=== PATIENT | male | born 1970 | race African-American/Black ===

== ENCOUNTER 2024-01-15 13:14 | Inpatient (IN) | payer OTHER ==
[2024-01-15 14:33] VITALS: BMI 24.5
[2024-01-15] MEDS ORDERED: DICYCLOMINE HCL 10 MG CAPSULE PO PRN (15:07)
[2024-01-15] MEDS ORDERED: BISMUTH SUBSALICYLATE 524 MG/30 ML PO PRN (15:07)
[2024-01-15] MEDS ORDERED: ONDANSETRON *ODT* 4 MG TABLET SL PRN (15:07)
[2024-01-15] MEDS ORDERED: NALOXONE HCL 0.4 MG/ML VIAL IM PRN (15:07)
[2024-01-15] MEDS ORDERED: NALOXONE (NARCAN) HCL 4 MG/0.1 ML SPRAY NS PRN (15:07)
[2024-01-15] MEDS ORDERED: IBUPROFEN 400 MG TABLET (FP) PO PRN (15:07)
[2024-01-15] MEDS ORDERED: MAGNESIUM HYDROX 2400MG/30ML ORAL SUSPENSION 30 ML CUP PO PRN (15:07)
[2024-01-15] MEDS ORDERED: ACETAMINOPHEN 325 MG TABLET (FP) PO PRN (15:07)
[2024-01-15] MEDS ORDERED: MAG HYDROX/AL HYDROX/SIMETH 30 ML UNIT-DOSE CUP PO PRN (15:07)
[2024-01-15] MEDS ORDERED: BENZONATATE 200 MG CAPSULE PO PRN (15:07)
[2024-01-15] MEDS ORDERED: METHOCARBAMOL 500 MG TABLET PO PRN (15:07)
[2024-01-15] MEDS ORDERED: LOPERAMIDE HCL 2 MG CAPSULE PO PRN (15:07)
[2024-01-15] MEDS ORDERED: chlordiazePOXIDE HCL 25 MG CAPSULE PO PRN (15:07)
[2024-01-15] MEDS ORDERED: chlordiazePOXIDE HCL 25 MG CAPSULE ONE (16:27)
[2024-01-15] MEDS: chlordiazePOXIDE HCL 25 MG CAPSULE PO SCH (16:34)
[2024-01-15] MEDS: THIAMINE 100 MG TABLET PO SCH (22:19)
[2024-01-15] MEDS: MELATONIN 5 MG TABLETS PO SCH (22:19)
[2024-01-16 09:06] LABS: CHLORIDE 106 mmol/L (98-107); HEMOGLOBIN 11.3 GM/dL (11.7-16.9); MCHC 31.4 g/dl (32.0-35.9); MEAN CELL VOLUME 86.1 fl (80-96); MEAN PLT VOLUME 9.5 fl (7.5-11.1); PLATELET COUNT 165 10^3/uL (134-434); POTASSIUM 3.9 mmol/L (3.5-5.1); RBC 4.18 M/mm3 (4.00-5.60); RDW 17.4 % (11.9-15.9); SODIUM 140 mmol/L (136-145)
[2024-01-16 09:10] LABS: ALBUMIN 2.6 g/dl (3.4-5.0); BLOOD UREA NITROGEN 10.4 mg/dL (7-18); CALCIUM 8.2 mg/dL (8.5-10.1)
[2024-01-16 09:11] LABS: ANION GAP 5 mmol/L (4-13); CO2 28 mmol/L (21-32); GLUCOSE,RANDOM 102 mg/dL (74-106)
[2024-01-16 09:13] LABS: SGPT/ALT 13 U/L (13-61)
[2024-01-16 09:14] LABS: CREATININE 0.8 mg/dL (0.55-1.3); SGOT/AST 12 U/L (15-37)
[2024-01-16 09:15] LABS: TOT PROT 6.4 g/dl (6.4-8.2)
[2024-01-16 09:16] LABS: ALK PHOS 132 U/L (45-117)
[2024-01-16 09:18] LABS: BILIRUBIN,TOTAL 0.3 mg/dL (0.2-1)
[2024-01-16] MEDS: PRENATAL VITAMINS W/ FOLIC ACID TABLET (FP) PO SCH (11:00)
[2024-01-16] MEDS: IBUPROFEN 600 MG TABLET (FP) PO PRN (11:21)
[2024-01-16] MEDS: guaiFENesin 600 MG TABLET.ER (FP) PO PRN (11:21)
[2024-01-16] MEDS: PENICILLIN G BENZATHINE 2,400,000 UNIT/4 ML PFS IM ONE (15:13)
[2024-01-17] MEDS: chlordiazePOXIDE HCL 25 MG CAPSULE PO SCH (05:21)
[2024-01-17] MEDS: BENZOCAINE/MENTHOL (CHLORASEPTIC ) LOZENGE MM PRN (05:23)
[2024-01-17] MEDS: POLYETHYLENE GLYCOL (HEALTHYLAX) 3350 17 GM PACKET PO PRN (07:04)
[2024-01-17 09:16] VITALS: BP 137/87; PULSE 99; RESP 16; TEMP 98.9
[2024-01-18] MEDS ORDERED: chlordiazePOXIDE HCL 10 MG CAPSULE PO PRN
[2024-01-18] MEDS ORDERED: chlordiazePOXIDE HCL 10 MG CAPSULE PO SCH (05:00)
[2024-01-19] MEDS ORDERED: chlordiazePOXIDE HCL 10 MG CAPSULE PO SCH (05:00)
[2024-01-20] MEDS ORDERED: chlordiazePOXIDE HCL 10 MG CAPSULE PO ONE (05:00)
== END 2024-01-17 12:16 | disposition left against medical advice (07) | DRG 770 ==
LOC: YASAS 13:14 → Y3N 15:38
PROVIDERS: ADMIT Allergy & Immunology; ATTEND Surgery
PROC: HZ2ZZZZ Detoxification Services for Substance Abuse Treatment (ICD-10-PCS; principal; 2024-01-15)
DX: F10.230 Alcohol dependence with withdrawal, uncomplicated (principal); F14.90 Cocaine use, unspecified, uncomplicated; R01.1 Cardiac murmur, unspecified; Z95.4 Presence of other heart-valve replacement; Z96.643 Presence of artificial hip joint, bilateral; Z98.890 Other specified postprocedural states; Z87.891 Personal history of nicotine dependence; Z91.011 Allergy to milk products; Z91.013 Allergy to seafood; Z56.0 Unemployment, unspecified
CPT/HCPCS: 36415; 80053; 80305; 80307; 85027; 86593; 86780; 93005; 93010

== ENCOUNTER 2024-03-08 10:38 | Inpatient (IN) | payer OTHER ==
[2024-03-08 11:31] VITALS: BMI 21.4
[2024-03-08] MEDS ORDERED: NALOXONE (NARCAN) HCL 4 MG/0.1 ML SPRAY NS PRN (12:13)
[2024-03-08] MEDS ORDERED: IBUPROFEN 400 MG TABLET (FP) PO PRN (12:13)
[2024-03-08] MEDS ORDERED: hydrOXYzine PAMOATE 25 MG CAPSULE (FP) PO PRN (12:13)
[2024-03-08] MEDS ORDERED: IBUPROFEN 600 MG TABLET (FP) PO PRN (12:13)
[2024-03-08] MEDS ORDERED: chlordiazePOXIDE HCL 25 MG CAPSULE PO PRN (12:13)
[2024-03-08] MEDS ORDERED: METHOCARBAMOL 500 MG TABLET PO PRN (12:13)
[2024-03-08] MEDS ORDERED: LOPERAMIDE HCL 2 MG CAPSULE PO PRN (12:13)
[2024-03-08] MEDS ORDERED: DICYCLOMINE HCL 10 MG CAPSULE PO PRN (12:13)
[2024-03-08] MEDS ORDERED: BENZONATATE 200 MG CAPSULE PO PRN (12:13)
[2024-03-08] MEDS ORDERED: ACETAMINOPHEN 325 MG TABLET (FP) PO PRN (12:13)
[2024-03-08] MEDS ORDERED: BISMUTH SUBSALICYLATE 524 MG/30 ML PO PRN (12:13)
[2024-03-08] MEDS ORDERED: guaiFENesin 600 MG TABLET.ER (FP) PO PRN (12:13)
[2024-03-08] MEDS ORDERED: ONDANSETRON *ODT* 4 MG TABLET SL PRN (12:13)
[2024-03-08] MEDS: PRENATAL VITAMINS W/ FOLIC ACID TABLET (FP) PO SCH (13:28)
[2024-03-08] MEDS: chlordiazePOXIDE HCL 25 MG CAPSULE PO SCH (17:21)
[2024-03-08] MEDS: THIAMINE 100 MG TABLET PO SCH (22:42)
[2024-03-08] MEDS: MELATONIN 5 MG TABLETS PO SCH (22:44)
[2024-03-09] MEDS: BICTEGRAV/EMTRICIT/TENOFOV (BIKTARVY) 50-200-25 MG TABLET PO SCH (07:23)
[2024-03-09] MEDS: TAMSULOSIN HCL 0.4 MG CAP PO SCH (08:48)
[2024-03-09] MEDS: SULFAMETHOXAZOLE/TRIMETHOPRIM 800MG/160MG D.S. TABLET PO SCH (09:48)
[2024-03-09] MEDS: PANTOPRAZOLE 20 MG TABLET PO SCH (09:49)
[2024-03-09] MEDS: FLUCONAZOLE 100 MG TABLET (UD) PO SCH (09:49)
[2024-03-09] MEDS: amLODIPine BESYLATE 10 MG TABLET (FP) PO SCH (09:49)
[2024-03-09 11:53] LABS: HEMATOCRIT 36.9 % (35.4-49); HEMOGLOBIN 11.4 GM/dL (11.7-16.9); MCH 26.7 pg (25.7-33.7); MCHC 30.8 g/dl (32.0-35.9); MEAN CELL VOLUME 86.6 fl (80-96); MEAN PLT VOLUME 9.6 fl (7.5-11.1); PLATELET COUNT 222 10^3/uL (134-434); RBC 4.26 M/mm3 (4.00-5.60); RDW 15.4 % (11.9-15.9)
[2024-03-09 13:20] LABS: POTASSIUM 4.3 mmol/L (3.5-5.1)
[2024-03-09 13:25] LABS: ALBUMIN 2.9 g/dl (3.4-5.0); BLOOD UREA NITROGEN 23.4 mg/dL (7-18)
[2024-03-09 13:28] LABS: CREATININE 0.8 mg/dL (0.55-1.3)
[2024-03-09 13:30] LABS: BILIRUBIN,TOTAL 0.3 mg/dL (0.2-1); TOT PROT 6.7 g/dl (6.4-8.2)
[2024-03-09] MEDS: MAGNESIUM HYDROX 2400MG/30ML ORAL SUSPENSION 30 ML CUP PO PRN (18:55)
[2024-03-09] MEDS: MAG HYDROX/AL HYDROX/SIMETH 30 ML UNIT-DOSE CUP PO PRN (20:25)
[2024-03-10] MEDS: BENZOCAINE/MENTHOL (CHLORASEPTIC ) LOZENGE MM PRN (04:22)
[2024-03-10] MEDS: chlordiazePOXIDE HCL 25 MG CAPSULE PO SCH (05:36)
[2024-03-10] MEDS: FOLIC ACID 1 MG TABLET (FP) PO SCH (07:35)
[2024-03-10] MEDS: POLYETHYLENE GLYCOL (HEALTHYLAX) 3350 17 GM PACKET PO PRN (13:35)
[2024-03-10] MEDS: LACTULOSE 20 GM/30 ML UDC (FOR ORAL USE ONLY) PO ONE (14:58)
[2024-03-10] MEDS: TAMSULOSIN HCL 0.4 MG CAP PO SCH (22:35)
[2024-03-11] MEDS ORDERED: chlordiazePOXIDE HCL 10 MG CAPSULE PO PRN
[2024-03-11] MEDS: chlordiazePOXIDE HCL 10 MG CAPSULE PO SCH (05:26)
[2024-03-11 09:05] VITALS: BP 132/87; PULSE 90; RESP 16; TEMP 97.8
[2024-03-11] MEDS: BICTEGRAV/EMTRICIT/TENOFOV (BIKTARVY) 50-200-25 MG TABLET PO SCH (09:45)
[2024-03-11] MEDS: NALOXONE (NYS OPIOID OVERDOSE PROGRAM) 4 MG/0.1 ML SPRAY NS PRN (11:08)
[2024-03-12] MEDS ORDERED: chlordiazePOXIDE HCL 10 MG CAPSULE PO SCH (05:00)
[2024-03-13] MEDS ORDERED: chlordiazePOXIDE HCL 10 MG CAPSULE PO ONE (05:00)
== END 2024-03-11 11:20 | disposition home or self-care (01) | DRG 775 ==
LOC: YASAS 10:38 → Y6N 12:59
PROVIDERS: ADMIT Allergy & Immunology; ATTEND Surgery
PROC: HZ2ZZZZ Detoxification Services for Substance Abuse Treatment (ICD-10-PCS; principal; 2024-03-08)
DX: F10.230 Alcohol dependence with withdrawal, uncomplicated (principal); Z21 Asymptomatic human immunodeficiency virus [HIV] infection status; I10 Essential (primary) hypertension; K21.9 Gastro-esophageal reflux disease without esophagitis; N40.0 Benign prostatic hyperplasia without lower urinary tract symptoms; Z96.643 Presence of artificial hip joint, bilateral; R76.8 Other specified abnormal immunological findings in serum; Z86.19 Personal history of other infectious and parasitic diseases; Z95.2 Presence of prosthetic heart valve; Z87.891 Personal history of nicotine dependence; Z79.899 Other long term (current) drug therapy
CPT/HCPCS: 36415; 80053; 80305; 80307; 85027; 86593; 86780; 93005; 93010

== ENCOUNTER 2024-05-07 16:10 | Inpatient (IN) | payer OTHER ==
[2024-05-07 16:36] VITALS: BMI 20.5
[2024-05-07] MEDS ORDERED: BENZONATATE 200 MG CAPSULE PO PRN (17:10)
[2024-05-07] MEDS ORDERED: IBUPROFEN 400 MG TABLET (FP) PO PRN (17:10)
[2024-05-07] MEDS ORDERED: LOPERAMIDE HCL 2 MG CAPSULE PO PRN (17:10)
[2024-05-07] MEDS ORDERED: MAGNESIUM HYDROX 2400MG/30ML ORAL SUSPENSION 30 ML CUP PO PRN (17:10)
[2024-05-07] MEDS ORDERED: ONDANSETRON *ODT* 4 MG TABLET SL PRN (17:10)
[2024-05-07] MEDS ORDERED: chlordiazePOXIDE HCL 25 MG CAPSULE PO PRN (17:10)
[2024-05-07] MEDS ORDERED: ACETAMINOPHEN 325 MG TABLET (FP) PO PRN (17:10)
[2024-05-07] MEDS ORDERED: NALOXONE (NARCAN) HCL 4 MG/0.1 ML SPRAY NS PRN (17:10)
[2024-05-07] MEDS ORDERED: DICYCLOMINE HCL 10 MG CAPSULE PO PRN (17:10)
[2024-05-07] MEDS ORDERED: POLYETHYLENE GLYCOL (HEALTHYLAX) 3350 17 GM PACKET PO PRN (17:10)
[2024-05-07] MEDS: MAG HYDROX/AL HYDROX/SIMETH 30 ML UNIT-DOSE CUP PO PRN (20:46)
[2024-05-07] MEDS: chlordiazePOXIDE HCL 25 MG CAPSULE PO SCH (22:18)
[2024-05-07] MEDS: THIAMINE 100 MG TABLET PO SCH (22:19)
[2024-05-07] MEDS: MELATONIN 5 MG TABLETS PO SCH (22:19)
[2024-05-07] MEDS: BISMUTH SUBSALICYLATE 524 MG/30 ML PO PRN (22:20)
[2024-05-08] MEDS: PRENATAL VITAMINS W/ FOLIC ACID TABLET (FP) PO SCH (10:18)
[2024-05-08] MEDS: BICTEGRAV/EMTRICIT/TENOFOV (BIKTARVY) 50-200-25 MG TABLET PO SCH (10:18)
[2024-05-08] MEDS: SULFAMETHOXAZOLE/TRIMETHOPRIM 800MG/160MG D.S. TABLET PO SCH (10:18)
[2024-05-08] MEDS: PANTOPRAZOLE 40 MG TABLET PO ONE (10:18)
[2024-05-08] MEDS: FLUCONAZOLE 100 MG TABLET (UD) PO SCH (10:59)
[2024-05-08 11:12] LABS: HEMATOCRIT 36.5 % (35.4-49); HEMOGLOBIN 11.7 GM/dL (11.7-16.9); MCH 26.6 pg (25.7-33.7); MCHC 31.9 g/dl (32.0-35.9); MEAN CELL VOLUME 83.4 fl (80-96); MEAN PLT VOLUME 9.7 fl (7.5-11.1); PLATELET COUNT 186 10^3/uL (134-434); RBC 4.38 M/mm3 (4.00-5.60); WHITE BLOOD COUNT 5.4 K/mm3 (4.0-10.0)
[2024-05-08 11:13] LABS: CHLORIDE 105 mmol/L (98-107); POTASSIUM 3.6 mmol/L (3.5-5.1); SODIUM 140 mmol/L (136-145)
[2024-05-08 11:22] LABS: ANION GAP 5 mmol/L (4-13); CALCIUM 8.6 mg/dL (8.5-10.1); CO2 30 mmol/L (21-32); GLUCOSE,RANDOM 61 mg/dL (74-106)
[2024-05-08 11:23] LABS: ALBUMIN 2.8 g/dl (3.4-5.0); BLOOD UREA NITROGEN 11.6 mg/dL (7-18)
[2024-05-08 11:24] LABS: CREATININE 0.8 mg/dL (0.55-1.3); SGPT/ALT 19 U/L (13-61)
[2024-05-08 11:26] LABS: BILIRUBIN,TOTAL 0.1 mg/dL (0.2-1); SGOT/AST 15 U/L (15-37); TOT PROT 6.9 g/dl (6.4-8.2)
[2024-05-08 11:27] LABS: ALK PHOS 116 U/L (45-117)
[2024-05-08] MEDS: BENZOCAINE/MENTHOL (CHLORASEPTIC ) LOZENGE MM PRN (11:51)
[2024-05-08] MEDS: FAMOTIDINE 20 MG TABLET PO ONE (18:48)
[2024-05-08] MEDS: guaiFENesin 600 MG TABLET.ER (FP) PO PRN (22:20)
[2024-05-08] MEDS: TAMSULOSIN HCL 0.4 MG CAP PO SCH (22:20)
[2024-05-09] MEDS: chlordiazePOXIDE HCL 25 MG CAPSULE PO SCH (05:33)
[2024-05-09] MEDS: PANTOPRAZOLE 40 MG TABLET PO SCH (07:23)
[2024-05-10] MEDS ORDERED: chlordiazePOXIDE HCL 10 MG CAPSULE PO PRN
[2024-05-10] MEDS: chlordiazePOXIDE HCL 10 MG CAPSULE PO SCH (05:37)
[2024-05-10] MEDS: hydrOXYzine PAMOATE 25 MG CAPSULE (FP) PO PRN (06:48)
[2024-05-11] MEDS: chlordiazePOXIDE HCL 10 MG CAPSULE PO SCH (05:40)
[2024-05-11] MEDS: IBUPROFEN 600 MG TABLET (FP) PO PRN (05:42)
[2024-05-11] MEDS: METHOCARBAMOL 500 MG TABLET PO PRN (05:42)
[2024-05-11 09:36] VITALS: BP 100/60; PULSE 90; RESP 18; TEMP 97.6
[2024-05-11] MEDS: NYSTATIN 500,000 UNITS/5 ML SUSPENSION PO SCH (11:16)
[2024-05-11] MEDS: NALOXONE (NYS OPIOID OVERDOSE PROGRAM) 4 MG/0.1 ML SPRAY NS SCH (11:30)
[2024-05-12] MEDS ORDERED: chlordiazePOXIDE HCL 10 MG CAPSULE PO ONE (05:00)
== END 2024-05-11 11:40 | disposition home or self-care (01) | DRG 774 ==
LOC: YASAS 16:10 → Y3N 17:37
PROVIDERS: ADMIT Allergy & Immunology; ATTEND Surgery
PROC: HZ2ZZZZ Detoxification Services for Substance Abuse Treatment (ICD-10-PCS; principal; 2024-05-07)
DX: F10.230 Alcohol dependence with withdrawal, uncomplicated (principal); F14.20 Cocaine dependence, uncomplicated; I10 Essential (primary) hypertension; B20 Human immunodeficiency virus [HIV] disease; B37.0 Candidal stomatitis; K21.9 Gastro-esophageal reflux disease without esophagitis; N40.0 Benign prostatic hyperplasia without lower urinary tract symptoms; I25.10 Atherosclerotic heart disease of native coronary artery without angina pectoris; R01.1 Cardiac murmur, unspecified; Z96.643 Presence of artificial hip joint, bilateral; Z87.891 Personal history of nicotine dependence; Z56.0 Unemployment, unspecified
CPT/HCPCS: 36415; 71046-TC-FY; 80053; 80305; 80307; 85027; 86593; 86780

== ENCOUNTER 2024-08-11 12:21 | Inpatient (IN) | payer OTHER ==
[2024-08-11 12:34] VITALS: BMI 23.1
[2024-08-11] MEDS ORDERED: IBUPROFEN 400 MG TABLET (FP) PO PRN (12:48)
[2024-08-11] MEDS ORDERED: BISMUTH SUBSALICYLATE 524 MG/30 ML PO PRN (12:48)
[2024-08-11] MEDS ORDERED: ONDANSETRON *ODT* 4 MG TABLET SL PRN (12:48)
[2024-08-11] MEDS ORDERED: LOPERAMIDE HCL 2 MG CAPSULE PO PRN (12:48)
[2024-08-11] MEDS ORDERED: ACETAMINOPHEN 325 MG TABLET (FP) PO PRN (12:48)
[2024-08-11] MEDS ORDERED: POLYETHYLENE GLYCOL (HEALTHYLAX) 3350 17 GM PACKET PO PRN (12:48)
[2024-08-11] MEDS ORDERED: IBUPROFEN 600 MG TABLET (FP) PO PRN (12:48)
[2024-08-11] MEDS ORDERED: BENZONATATE 200 MG CAPSULE PO PRN (12:48)
[2024-08-11] MEDS ORDERED: NALOXONE (NARCAN) HCL 4 MG/0.1 ML SPRAY NS PRN (12:48)
[2024-08-11] MEDS ORDERED: guaiFENesin 600 MG TABLET.ER (FP) PO PRN (12:48)
[2024-08-11] MEDS ORDERED: MAGNESIUM HYDROX 2400MG/30ML ORAL SUSPENSION 30 ML CUP PO PRN (12:48)
[2024-08-11] MEDS ORDERED: DICYCLOMINE HCL 10 MG CAPSULE PO PRN (12:48)
[2024-08-11] MEDS ORDERED: chlordiazePOXIDE HCL 25 MG CAPSULE PO PRN (12:48)
[2024-08-11] MEDS: PRENATAL VITAMINS W/ FOLIC ACID TABLET (FP) PO SCH (14:10)
[2024-08-11] MEDS: chlordiazePOXIDE HCL 25 MG CAPSULE PO SCH (17:47)
[2024-08-11] MEDS: MAG HYDROX/AL HYDROX/SIMETH 30 ML UNIT-DOSE CUP PO PRN (18:02)
[2024-08-11] MEDS: THIAMINE 100 MG TABLET PO SCH (22:42)
[2024-08-11] MEDS: hydrOXYzine PAMOATE 25 MG CAPSULE (FP) PO PRN (22:42)
[2024-08-11] MEDS: METHOCARBAMOL 500 MG TABLET PO PRN (22:42)
[2024-08-11] MEDS: MELATONIN 5 MG TABLETS PO SCH (22:43)
[2024-08-12] MEDS: BICTEGRAV/EMTRICIT/TENOFOV (BIKTARVY) 50-200-25 MG TABLET PO SCH (07:32)
[2024-08-12] MEDS: TAMSULOSIN HCL 0.4 MG CAP PO SCH (09:03)
[2024-08-12 09:34] LABS: POTASSIUM 3.6 mmol/L (3.5-5.1)
[2024-08-12 09:36] LABS: HEMATOCRIT 35.9 % (35.4-49); HEMOGLOBIN 11.5 GM/dL (11.7-16.9); MCHC 31.9 g/dl (32.0-35.9); MEAN CELL VOLUME 81.4 fl (80-96); MEAN PLT VOLUME 9.3 fl (7.5-11.1); PLATELET COUNT 234 10^3/uL (134-434); RBC 4.41 M/mm3 (4.00-5.60); RDW 16.9 % (11.9-15.9); WHITE BLOOD COUNT 6.3 K/mm3 (4.0-10.0)
[2024-08-12 09:50] LABS: ALBUMIN 2.6 g/dl (3.4-5.0); BLOOD UREA NITROGEN 10.2 mg/dL (7-18); CALCIUM 8.5 mg/dL (8.5-10.1)
[2024-08-12 09:52] LABS: CREATININE 0.8 mg/dL (0.55-1.3)
[2024-08-12 09:54] LABS: BILIRUBIN,TOTAL 0.4 mg/dL (0.2-1)
[2024-08-12 09:57] LABS: TOT PROT 6.7 g/dl (6.4-8.2)
[2024-08-12] MEDS: amLODIPine BESYLATE 10 MG TABLET (FP) PO SCH (10:42)
[2024-08-12] MEDS: PANTOPRAZOLE 20 MG TABLET PO SCH (10:42)
[2024-08-12] MEDS: TAMSULOSIN HCL 0.4 MG CAP PO ONE (10:42)
[2024-08-12] MEDS: SULFAMETHOXAZOLE/TRIMETHOPRIM 800MG/160MG D.S. TABLET PO SCH (10:42)
[2024-08-12] MEDS: FLUCONAZOLE 100 MG TABLET (UD) PO SCH (10:50)
[2024-08-13] MEDS: chlordiazePOXIDE HCL 25 MG CAPSULE PO SCH (06:00)
[2024-08-13] MEDS: TAMSULOSIN HCL 0.4 MG CAP PO SCH (08:01)
[2024-08-14] MEDS ORDERED: chlordiazePOXIDE HCL 10 MG CAPSULE PO PRN
[2024-08-14] MEDS: NYSTATIN 500,000 UNITS/5 ML SUSPENSION PO SCH (01:13)
[2024-08-14] MEDS: BENZOCAINE/MENTHOL (CHLORASEPTIC ) LOZENGE MM PRN (03:57)
[2024-08-14] MEDS: chlordiazePOXIDE HCL 10 MG CAPSULE PO SCH (06:00)
[2024-08-15] MEDS: chlordiazePOXIDE HCL 10 MG CAPSULE PO SCH (06:00)
[2024-08-15 09:08] VITALS: BP 111/71; PULSE 104; RESP 18; TEMP 98.7
[2024-08-15] MEDS ORDERED: FLUCONAZOLE 100 MG TABLET (UD) PO ONE (13:30)
[2024-08-16] MEDS ORDERED: chlordiazePOXIDE HCL 10 MG CAPSULE PO ONE (05:00)
== END 2024-08-15 09:55 | disposition home or self-care (01) | DRG 774 ==
LOC: YASAS 12:21 → Y6N 13:29
PROVIDERS: ADMIT Allergy & Immunology; ATTEND Allergy & Immunology
PROC: HZ2ZZZZ Detoxification Services for Substance Abuse Treatment (ICD-10-PCS; principal; 2024-08-11)
DX: F10.230 Alcohol dependence with withdrawal, uncomplicated (principal); F14.20 Cocaine dependence, uncomplicated; Z21 Asymptomatic human immunodeficiency virus [HIV] infection status; I10 Essential (primary) hypertension; K21.9 Gastro-esophageal reflux disease without esophagitis; B37.0 Candidal stomatitis; J06.9 Acute upper respiratory infection, unspecified; N40.0 Benign prostatic hyperplasia without lower urinary tract symptoms; Z87.891 Personal history of nicotine dependence; Z79.899 Other long term (current) drug therapy; Z86.19 Personal history of other infectious and parasitic diseases
CPT/HCPCS: 0241U-QW; 36415; 80053; 80305; 80307; 85027; 86593; 86780; 93005; 93010

== ENCOUNTER 2024-10-31 09:56 | Inpatient (IN) | payer OTHER ==
[2024-10-31 10:08] VITALS: BMI 22.0
[2024-10-31] MEDS ORDERED: BENZOCAINE/MENTHOL (CHLORASEPTIC ) LOZENGE MM PRN (10:26)
[2024-10-31] MEDS ORDERED: POLYETHYLENE GLYCOL (HEALTHYLAX) 3350 17 GM PACKET PO PRN (10:26)
[2024-10-31] MEDS ORDERED: NALOXONE (NARCAN) HCL 4 MG/0.1 ML SPRAY NS PRN (10:26)
[2024-10-31] MEDS ORDERED: LOPERAMIDE HCL 2 MG CAPSULE PO PRN (10:26)
[2024-10-31] MEDS ORDERED: guaiFENesin 600 MG TABLET.ER (FP) PO PRN (10:26)
[2024-10-31] MEDS ORDERED: BENZONATATE 200 MG CAPSULE PO PRN (10:26)
[2024-10-31] MEDS ORDERED: ACETAMINOPHEN 325 MG TABLET (FP) PO PRN (10:26)
[2024-10-31] MEDS: MELATONIN 5 MG TABLETS PO SCH (21:24)
[2024-10-31] MEDS: THIAMINE 100 MG TABLET PO SCH (21:24)
[2024-10-31] MEDS: IBUPROFEN 600 MG TABLET (FP) PO PRN (23:41)
[2024-10-31] MEDS: MAG HYDROX/AL HYDROX/SIMETH 30 ML UNIT-DOSE CUP PO PRN (23:42)
[2024-11-01] MEDS: BICTEGRAV/EMTRICIT/TENOFOV (BIKTARVY) 50-200-25 MG TABLET PO SCH (07:53)
[2024-11-01] MEDS: TAMSULOSIN HCL 0.4 MG CAP PO SCH (07:54)
[2024-11-01] MEDS: FOLIC ACID 1 MG TABLET (FP) PO SCH (09:08)
[2024-11-01] MEDS: SULFAMETHOXAZOLE/TRIMETHOPRIM 800MG/160MG D.S. TABLET PO SCH (09:08)
[2024-11-01] MEDS: IBUPROFEN 400 MG TABLET (FP) PO PRN (09:09)
[2024-11-01] MEDS: PRENATAL VITAMINS W/ FOLIC ACID TABLET (FP) PO SCH (09:09)
[2024-11-01] MEDS: amLODIPine BESYLATE 10 MG TABLET (FP) PO SCH (09:09)
[2024-11-01] MEDS: MAGNESIUM HYDROX 2400MG/30ML ORAL SUSPENSION 30 ML CUP PO PRN (09:11)
[2024-11-01 11:29] VITALS: BP 123/73; PULSE 95; RESP 16; TEMP 96.8
[2024-11-01 11:36] LABS: HEMATOCRIT 33.2 % (40.1-51.0); HEMOGLOBIN 10.2 g/dL (13.7-17.5); MCHC 30.7 g/dl (32.3-36.5); MEAN CELL VOLUME 80.6 fl (79.0-92.2); MEAN PLT VOLUME 11.2 fl (9.4-12.4); PLATELET COUNT 473 x10^3/uL (163-337)
[2024-11-01 11:50] LABS: BLOOD UREA NITROGEN 18.1 mg/dL (7-18)
[2024-11-01 11:51] LABS: CALCIUM 9.3 mg/dL (8.5-10.1)
[2024-11-01 11:52] LABS: ALBUMIN 3.1 g/dl (3.4-5.0); TOT PROT 7.4 g/dl (6.4-8.2)
[2024-11-01 11:54] LABS: CREATININE 0.9 mg/dL (0.55-1.3)
[2024-11-01 12:02] LABS: BILIRUBIN,TOTAL 0.2 mg/dL (0.2-1)
[2024-11-01] MEDS ORDERED: MIDAZOLAM HCL 2 MG/2 ML SINGLE DOSE VIAL ONE (15:40)
[2024-11-01] MEDS ORDERED: PROPOFOL 40 ML ONE (15:41)
[2024-11-01] MEDS ORDERED: ROCURONIUM BROMIDE 50 MG/5 ML SYRINGE ONE ×2 (15:42→16:52)
[2024-11-01] MEDS ORDERED: SUCCINYLCHOLINE CHLORIDE 200 MG/10 ML SYRINGE ONE (15:42)
[2024-11-01] MEDS ORDERED: ceFAZolin SODIUM 1 GM VIAL ONE ×2 (16:09)
[2024-11-01] MEDS ORDERED: MIRTAZAPINE 15 MG TABLET (FP) PO SCH (22:00)
[2024-11-02] MEDS ORDERED: PANTOPRAZOLE 20 MG TABLET PO SCH (10:00)
[2024-11-02] MEDS ORDERED: FLUCONAZOLE 100 MG TABLET (UD) PO SCH (10:00)
== END 2024-11-01 18:30 | disposition short-term general hospital (02) | DRG 772 ==
LOC: YASAS 09:56 → Y3E 10:56
PROVIDERS: ADMIT Psychiatry & Neurology Pain Medicine; ATTEND Psychiatry & Neurology Pain Medicine
PROC: HZ42ZZZ Group Counseling for Substance Abuse Treatment, Cognitive-Behavioral (ICD-10-PCS; principal; 2024-10-31)
DX: F10.20 Alcohol dependence, uncomplicated (principal); F14.20 Cocaine dependence, uncomplicated; F19.282 Other psychoactive substance dependence with psychoactive substance-induced sleep disorder; F32.A Depression, unspecified; Z21 Asymptomatic human immunodeficiency virus [HIV] infection status; B37.0 Candidal stomatitis; G47.00 Insomnia, unspecified; I10 Essential (primary) hypertension; K21.9 Gastro-esophageal reflux disease without esophagitis; N40.0 Benign prostatic hyperplasia without lower urinary tract symptoms; K40.30 Unilateral inguinal hernia, with obstruction, without gangrene, not specified as recurrent; Z87.891 Personal history of nicotine dependence; Z95.4 Presence of other heart-valve replacement; Z86.19 Personal history of other infectious and parasitic diseases; Z99.89 Dependence on other enabling machines and devices
CPT/HCPCS: 36415; 80053; 80305; 80307; 85027; 86593; 86780; 87811

== ENCOUNTER 2024-11-01 12:11 | Inpatient (IN) | payer OTHER ==
[2024-11-01] MEDS ORDERED: morphine SULFATE 4 MG/ML VIAL ONE (14:06)
[2024-11-01] MEDS: morphine SULFATE 4 MG/ML VIAL IVPUSH ONE (14:08)
[2024-11-01 14:23] LABS: ABSOLUTE IMMATURE GRANULOCYTES 0.24 x10^3/uL (0.0-0.031); BASOPHILS # 0.03 x10^3/uL (0.01-0.08); EOSINOPHIL % 1.1 % (0.8-7.0); HEMATOCRIT 37.2 % (40.1-51.0); HEMOGLOBIN 11.4 g/dL (13.7-17.5); MCHC 30.6 g/dl (32.3-36.5); MEAN CELL VOLUME 80.3 fl (79.0-92.2); MONOCYTE # 0.62 x10^3/uL (0.30-0.82); MONOCYTE % 6.9 % (5.3-12.2); PLATELET COUNT 473 x10^3/uL (163-337); RDW 18.6 % (12.2-16.1)
[2024-11-01 14:27] LABS: INR 0.92 (0.83-1.09)
[2024-11-01] MEDS: SODIUM CHLORIDE 0.9% 1000 ML INFUS.BAG IV ONE (14:28)
[2024-11-01 14:31] LABS: ACTIVATED PTT 27.7 SECONDS (25.2-36.5)
[2024-11-01 14:45] LABS: POTASSIUM 3.9 mmol/L (3.5-5.1)
[2024-11-01 14:47] LABS: ALBUMIN 2.9 g/dl (3.4-5.0); BLOOD UREA NITROGEN 13.8 mg/dL (7-18); CALCIUM 9.1 mg/dL (8.5-10.1)
[2024-11-01 14:50] LABS: CREATININE 0.7 mg/dL (0.55-1.3)
[2024-11-01 14:52] LABS: BILIRUBIN,TOTAL 0.3 mg/dL (0.2-1); TOT PROT 7.5 g/dl (6.4-8.2)
[2024-11-01] MEDS: ceFAZolin SODIUM 1 GM VIAL IVPB ONE (16:10)
[2024-11-01] MEDS: BUPIVACAINE HCL/PF 0.25% (2.5MG/ML) 10 ML VIAL IJ ONE ×2 (16:20)
[2024-11-01] MEDS ORDERED: MIDAZOLAM HCL 2 MG/2 ML SINGLE DOSE VIAL ONE (17:21)
[2024-11-01] MEDS ORDERED: SUGAMMADEX SODIUM 200 MG/2 ML VIAL ONE (17:28)
[2024-11-01] MEDS ORDERED: PHENYLEPHRINE HCL 10 MG/1 ML SINGLE DOSE VIAL ONE (17:32)
[2024-11-01] MEDS ORDERED: ONDANSETRON 4 MG/2 ML VIAL IVPUSH PRN (17:54)
[2024-11-01] MEDS: LACTATED RINGERS SOLUTION 1,000 ML/1,000 ML INFUS.BAG IV SCH (18:00)
[2024-11-01] MEDS: ACETAMINOPHEN INJECTION 100 ML ONE (18:57)
[2024-11-01] MEDS: ACETAMINOPHEN 1000 MG/100 ML BAG IVPB SCH (18:57)
[2024-11-01] MEDS: LORazepam 2 MG/ML SDV VIAL IVPUSH PRN (20:45)
[2024-11-01] MEDS: NYSTATIN 500,000 UNITS/5 ML SUSPENSION PO SCH (21:50)
[2024-11-01] MEDS: AMPICILLIN NA/SULBACTAM NA 3 GM in SODIUM CHLORIDE 100 ML IVPB SCH (22:04)
[2024-11-01] MEDS: LACTATED RINGERS SOLUTION 1,000 ML IV SCH (22:04)
[2024-11-01 22:59] VITALS: BMI 21.7
[2024-11-01] MEDS: CEFAZOLIN (F) 1 GM/D5W 1 GM/50 ML BAG IVPB SCH (23:03)
[2024-11-02] MEDS: LORazepam 2 MG/ML SDV VIAL IVPUSH ONE (02:47)
[2024-11-02 08:39] LABS: ABSOLUTE IMMATURE GRANULOCYTES 0.08 x10^3/uL (0.0-0.031); BASOPHILS # 0.04 x10^3/uL (0.01-0.08); EOSINOPHIL % 1.4 % (0.8-7.0); EOSINOPHILS # 0.09 x10^3/uL (0.04-0.54); HEMOGLOBIN 10.6 g/dL (13.7-17.5); MCHC 29.4 g/dl (32.3-36.5); MEAN CELL VOLUME 82.2 fl (79.0-92.2); MEAN PLT VOLUME 10.3 fl (9.4-12.4); MONOCYTE # 0.48 x10^3/uL (0.30-0.82); MONOCYTE % 7.3 % (5.3-12.2); PLATELET COUNT 423 x10^3/uL (163-337); RDW 18.4 % (12.2-16.1)
[2024-11-02 09:00] LABS: POTASSIUM 4.5 mmol/L (3.5-5.1)
[2024-11-02 09:15] LABS: CALCIUM 8.6 mg/dL (8.5-10.1)
[2024-11-02 09:16] LABS: BLOOD UREA NITROGEN 9.4 mg/dL (7-18)
[2024-11-02 09:19] LABS: CREATININE 0.7 mg/dL (0.55-1.3)
[2024-11-02] MEDS ORDERED: amLODIPine BESYLATE 10 MG TABLET (FP) PO SCH (10:00)
[2024-11-02] MEDS: HEPARIN NA (PORCINE) 5,000 UNITS/ML 1ML VIAL SQ SCH (10:00)
[2024-11-02] MEDS: SULFAMETHOXAZOLE/TRIMETHOPRIM 800MG/160MG D.S. TABLET PO SCH (10:00)
[2024-11-02] MEDS: TAMSULOSIN HCL 0.4 MG CAP PO SCH (10:00)
[2024-11-02] MEDS: BICTEGRAV/EMTRICIT/TENOFOV (BIKTARVY) 50-200-25 MG TABLET PO SCH (10:00)
[2024-11-02] MEDS: FLUCONAZOLE 100 MG TABLET (UD) PO SCH (10:01)
[2024-11-02] MEDS: amLODIPine BESYLATE 10 MG TABLET (FP) PO SCH (10:01)
[2024-11-02] MEDS: FAMOTIDINE 20 MG TABLET PO SCH (10:05)
[2024-11-02] MEDS: MULTIVITAMINS (DAILY MVI) TABLET (FP) PO SCH (11:46)
[2024-11-02 12:47] LABS: MAGNESIUM 2.2 mg/dL (1.8-2.4)
[2024-11-02 12:51] LABS: PHOSPHOROUS 3.4 mg/dL (2.5-4.9)
[2024-11-03] MEDS: ACETAMINOPHEN 1000 MG/100 ML BAG IVPB ONE (04:05)
[2024-11-03] MEDS: MELATONIN 5 MG TABLETS PO ONE (04:05)
[2024-11-03 07:53] VITALS: PULSE 80
[2024-11-03] MEDS: amLODIPine BESYLATE 5 MG TABLET (FP) PO SCH (09:44)
[2024-11-03 10:53] VITALS: BP 120/74; RESP 20; TEMP 98
== END 2024-11-03 11:15 | disposition home or self-care (01) | DRG 228 ==
LOC: JER 12:11 → JERBED 14:53 → JER 15:25 → J2C 16:11 → J8W 20:11
PROVIDERS: ADMIT Internal Medicine; ATTEND Nurse Practitioner Family
PROC: 0YU60JZ Supplement Left Inguinal Region with Synthetic Substitute, Open Approach (ICD-10-PCS; principal; 2024-11-01 18:00)
DX: K40.30 Unilateral inguinal hernia, with obstruction, without gangrene, not specified as recurrent (principal); B37.0 Candidal stomatitis; I10 Essential (primary) hypertension; K21.9 Gastro-esophageal reflux disease without esophagitis; N40.0 Benign prostatic hyperplasia without lower urinary tract symptoms; F14.10 Cocaine abuse, uncomplicated; Z21 Asymptomatic human immunodeficiency virus [HIV] infection status
CPT/HCPCS: 36415; 74176-TC; 80048; 80053; 83605; 83735; 84100; 85025; 85610; 85730; 86140; 86850; 86900; 86901; 93005; 93010; 94760; 99285-25

== ENCOUNTER 2025-03-03 11:59 | Inpatient (IN) | payer OTHER ==
[2025-03-03 12:28] VITALS: BMI 21.1
[2025-03-03] MEDS ORDERED: DICYCLOMINE HCL 10 MG CAPSULE PO PRN (15:06)
[2025-03-03] MEDS ORDERED: IBUPROFEN 600 MG TABLET (FP) PO PRN (15:06)
[2025-03-03] MEDS ORDERED: ONDANSETRON *ODT* 4 MG TABLET SL PRN (15:06)
[2025-03-03] MEDS ORDERED: IBUPROFEN 400 MG TABLET (FP) PO PRN (15:06)
[2025-03-03] MEDS ORDERED: MAGNESIUM HYDROX 2400MG/30ML ORAL SUSPENSION 30 ML CUP PO PRN (15:06)
[2025-03-03] MEDS ORDERED: BISMUTH SUBSALICYLATE 524 MG/30 ML PO PRN (15:06)
[2025-03-03] MEDS ORDERED: POLYETHYLENE GLYCOL (HEALTHYLAX) 3350 17 GM PACKET PO PRN (15:06)
[2025-03-03] MEDS ORDERED: METHOCARBAMOL 500 MG TABLET PO PRN (15:06)
[2025-03-03] MEDS ORDERED: ACETAMINOPHEN 325 MG TABLET (FP) PO PRN (15:06)
[2025-03-03] MEDS ORDERED: BENZONATATE 200 MG CAPSULE PO PRN (15:06)
[2025-03-03] MEDS ORDERED: NALOXONE (NARCAN) HCL 4 MG/0.1 ML SPRAY NS PRN (15:06)
[2025-03-03] MEDS ORDERED: BENZOCAINE/MENTHOL (CHLORASEPTIC ) LOZENGE MM PRN (15:06)
[2025-03-03] MEDS ORDERED: guaiFENesin 600 MG TABLET.ER (FP) PO PRN (15:06)
[2025-03-03] MEDS ORDERED: BICTEGRAV/EMTRICIT/TENOFOV (BIKTARVY) 50-200-25 MG TABLET PO SCH (15:45)
[2025-03-03] MEDS: BICTEGRAV/EMTRICIT/TENOFOV (BIKTARVY) 50-200-25 MG TABLET PO SCH (17:32)
[2025-03-03] MEDS: ATOVAQUONE 750 MG/5 ML (UNIT-DOSE PACKAGING) PO SCH (17:49)
[2025-03-03] MEDS: FLUCONAZOLE 100 MG TABLET (UD) PO SCH (17:50)
[2025-03-03] MEDS: NYSTATIN 500,000 UNITS/5 ML SUSPENSION PO SCH (23:06)
[2025-03-03] MEDS: MELATONIN 5 MG TABLETS PO SCH (23:11)
[2025-03-03] MEDS: THIAMINE 100 MG TABLET PO SCH (23:12)
[2025-03-03] MEDS: MAG HYDROX/AL HYDROX/SIMETH 30 ML UNIT-DOSE CUP PO PRN (23:13)
[2025-03-04] MEDS: LOPERAMIDE HCL 2 MG CAPSULE PO PRN (03:53)
[2025-03-04 06:57] VITALS: RESP 16
[2025-03-04] MEDS: TAMSULOSIN HCL 0.4 MG CAP PO SCH (07:57)
[2025-03-04 08:49] VITALS: BP 117/63; PULSE 89; TEMP 97.9
[2025-03-04] MEDS: PANTOPRAZOLE 40 MG TABLET PO SCH (10:40)
[2025-03-04] MEDS: PRENATAL VITAMINS W/ FOLIC ACID TABLET (FP) PO SCH (10:40)
[2025-03-04] MEDS: amLODIPine BESYLATE 5 MG TABLET (FP) PO SCH (10:41)
== END 2025-03-04 14:47 | disposition left against medical advice (07) | DRG 770 ==
LOC: YASAS 11:59 → Y6N 15:40
PROVIDERS: ADMIT Allergy & Immunology; ATTEND Allergy & Immunology
PROC: HZ2ZZZZ Detoxification Services for Substance Abuse Treatment (ICD-10-PCS; principal; 2025-03-03)
DX: F11.23 Opioid dependence with withdrawal (principal); F10.230 Alcohol dependence with withdrawal, uncomplicated; F14.20 Cocaine dependence, uncomplicated; F41.9 Anxiety disorder, unspecified; F32.A Depression, unspecified; B20 Human immunodeficiency virus [HIV] disease; K21.9 Gastro-esophageal reflux disease without esophagitis; N40.0 Benign prostatic hyperplasia without lower urinary tract symptoms; Z87.891 Personal history of nicotine dependence; Z86.11 Personal history of tuberculosis; Z86.19 Personal history of other infectious and parasitic diseases; Z95.2 Presence of prosthetic heart valve
CPT/HCPCS: 80305; 93005; 93010